=== PATIENT | male | born 1980 | race African-American/Black ===

== ENCOUNTER 2017-12-23 21:32 | Emergency (ER) | payer MEDICAID, OTHER ==
[~2017-12-23] VITALS: Ht 193 cm; Wt 92.0 kg
[2017-12-24] MEDS ORDERED: IBUPROFEN 800MG TABLET PO ONE (02:30)
[2017-12-24 02:50] VITALS: BP 137/78
== END 2017-12-24 02:59 | disposition home or self-care (01) ==
LOC: ER 21:32
DX: M25.561 Pain in right knee (principal); F17.200 Nicotine dependence, unspecified, uncomplicated
CPT/HCPCS: 99283